=== PATIENT | female | born 1950 | race Caucasian/White ===

== ENCOUNTER 2022-08-11 06:53 | Day surgery (SDC) | payer MEDICARE, OTHER ==
[~2022-08-11] VITALS: Ht 170.2 cm; Wt 81.6 kg
[~2022-08-11 06:53] MED LIST: CELEBREX100 M1 PO; FISH OIL1 CAP PO; PRILOSEC20 MG/CAP PO; PROZAC20 MG PO; XANAX0.25 MG PO
[2022-08-11] MEDS ORDERED: [UNRECOGNIZED DRUG - OTHER] PO (07:24)
[2022-08-11 11:18] VITALS: BP 148/83
== END 2022-08-11 10:20 | disposition home or self-care (01) ==
LOC: ENDO 06:53 → ORM 15:45
PROVIDERS: ATTEND Internal Medicine Gastroenterology
PROC: 0DJD8ZZ Inspection of Lower Intestinal Tract, Via Natural or Artificial Opening Endoscopic (ICD-10-PCS; principal; 2022-08-11)
PROC: 0D738ZZ Dilation of Lower Esophagus, Via Natural or Artificial Opening Endoscopic (ICD-10-PCS; 2022-08-11)
PROC: 0DB58ZX Excision of Esophagus, Via Natural or Artificial Opening Endoscopic, Diagnostic (ICD-10-PCS; 2022-08-11)
PROC: 0DB78ZX Excision of Stomach, Pylorus, Via Natural or Artificial Opening Endoscopic, Diagnostic (ICD-10-PCS; 2022-08-11)
DX: Z12.11 Encounter for screening for malignant neoplasm of colon (principal); K64.8 Other hemorrhoids; K22.2 Esophageal obstruction; K29.70 Gastritis, unspecified, without bleeding; K22.9 Disease of esophagus, unspecified; F41.9 Anxiety disorder, unspecified; E78.5 Hyperlipidemia, unspecified
CPT/HCPCS: 43248; 43239; G0121